=== PATIENT | male | born 1975 | race Caucasian/White ===

== ENCOUNTER 2020-04-14 16:41 | Emergency (ER) | payer OTHER ==
[~2020-04-14] VITALS: Ht 177.8 cm; Wt 88.6 kg
[2020-04-14] MEDS ORDERED: IV NORMAL SALINE 1,000ML 1,000 ML IV SCH (16:44)
--- NOTE | 2020-04-14 16:48 | PHYS DOC ---
Past History Past Medical History: No Pertinent History (ADRIEN GOMES MD) General Adult EDM: Chief Complaint: OVERDOSE HPI: HPI: Patient is a 44-year-old male who presents to the emergency department for evaluation. He was found unresponsive on the floor in the bathroom in the [facility], suspected of abusing drugs possibly K2 per guard reports to EMS. There is another resident of the same facility who was just seen in the emergency department for similar symptoms under similar circumstance. The p karthikeyan presents to the emergency department, he is able to answer some basic questions but is unable to provide any meaningful history, secondary to to altered mental status. He appears intoxicated, possibly consistent with a sympathomimetic toxidrome. He denies any pain. (ADRIEN GOMES MD) Review of Systems: Review of Systems: Unable to obtain review of systems secondary to altered mental status. (ADRIEN GOMES MD) Heart Score: Risk Factors: Risk Factors: DM, Current or recent (<one month) smoker, HTN, HLP, family history of CAD, obesity. Risk Scores: Score 0 - 3: 2.5% MACE over next 6 weeks - Discharge Home Score 4 - 6: 20.3% MACE over next 6 weeks - Admit for Clinical Observation Score 7 - 10: 72.7% MACE over next 6 weeks - Early Invasive Strategies (ADRIEN GOMES MD) Physical Exam: PE: PHYSICAL EXAM: CONSTITUTIONAL: Well developed, well nourished HEAD: normocephalic, atraumatic EENT: PERRL, EOMI. pupils are 7 mm bilaterally. Conjunctivae normal color, sc lerae non-icteric; moist mucous membranes. NECK: Supple, non-tender; no meningismus. LUNGS: Lungs CTA, breathing even and unlabored. Normal air movement. HEART: Regular tachycardia, no murmur CHEST: No deformity; non-tender ABDOMEN: The abdomen is soft, and non-tender, no masses or bruits. EXTREM: Normal ROM; no deformity, no calf tenderness. Normal pulses palpable in all extremities. There is no pedal edema. SKIN: No rash; patient is diaphoretic, mildly. NEURO: Alert; speech articulation is normal, patient is somewhat disoriented,; CN's grossly intact; strength grossly intact without focal deficit. BACK: No CVA TTP. (ADRIEN GOMES MD) EKG: EKG: [] Sinus tachycardia at a rate of 131 bpm, normal axis, normal intervals, there are no acute ischemic ST/T changes. (ADRIEN GOMES MD) Radiology/Procedures: Radiology/Procedures: [] (ADRIEN GOMES MD) Course & Med Decision Making: Course & Med Decision Making 6:00 PM: Pt condition remains stable. Care turned over to Dr Hunt at shift change, pending labs and final dispo. Report given. Pertinent Labs and Imaging studies reviewed. (See chart for details) [] (ADRIEN GOMES MD) Course & Med Decision Making 1800 Care of pt assumed at shift change 1840; patient refused CT of head. Patient states "I am all right". Patient is lucid awake and appropriate with no focal deficits or lateralizing signs. Patient states that he drank a couple shots of alcohol earlier tonight but his alcohol level was 0. Patient was advised that refusing the CAT scan could result in the failure to diagnose a stroke, brain bleed or other serious findings. This could result in or disability. Patient still insisted upon refusing this test (ARCADIO HUNT DO) Dragon Disclaimer: Dragon Disclaimer: This electronic medical record was generated, in whole or in part, using a voice recognition dictation system. (ADRIEN GOMES MD) Departure Departure: Impression: Primary Impression: Altered mental status Qualified Codes: R41.0 - Disorientation, unspecified Additional Impression: Amphetamine abuse Disposition: HOME/RESIDENCE PRIOR TO ADM Condition: STABLE Referrals: AYSE HOLLAND MD Patient Instructions: Altered Mental Status, Methamphetamine Abuse, Complications Additional Instructions: Drink plenty fluids, rest, return if symptoms persist or worsen. You are medically cleared at this time Positive finding was methamphetamine in your urine Justification of Admission: Justification of Admission: Justification of Admission Dx: N/A (ARCADIO HUNT DO) ADRIEN GOMES MD Apr 14, 2020 16:48 ARCADIO HUNT DO Apr 14, 2020 18:03
--- NOTE | 2020-04-14 16:56 | EKG ---
[address] [address] Test Date: 2020-04-14 Test Time: 16:48:23 Pat Name: MARIANA ALMAGUER Department: Room: Gender: M Spacer Type Bar And Segment: : 1975 Requested By: ADRIEN GOMES Order Number: [id number] Reading MD: Measurements Intervals Hector Rate: 131 P: 48 IL: 124 QRS: 52 QRSD: 82 T: 48 QT: 306 QTc: 457 Interpretive Statements SINUS TACHYCARDIA NO SPECIFIC ECG ABNORMALITIES RI6.02 No previous ECG available for comparison
[2020-04-14 17:09] VITALS: BP 130/81
[2020-04-14 17:11] LABS: BASO % 1 % (0-3); EOS # 0.1 x10^3/uL (0.0-0.7); EOS % 2 % (0-3); HEMATOCRIT 48.5 % (39.0-53.0); HEMOGLOBIN 16.4 g/dL (13.0-17.5); LYMPH # 1.3 x10^3/uL (1.0-4.8); LYMPH % 24 % (24-48); MEAN CORPUSCULAR HEMOGLOBIN 31 pg (25-35); MEAN CORPUSCULAR HGB CONC 34 g/dL (31-37); MEAN CORPUSCULAR VOLUME 92 fL (79-100); MONO # 0.5 x10^3/uL (0.0-1.1); MONO % 9 % (0-9); NEUT # 3.6 x10^3uL (1.8-7.7); NEUT % 65 % (31-73); PLATELET COUNT 320 x10^3/uL (140-400); RED BLOOD COUNT 5.25 x10^6/uL (4.30-5.70); RED CELL DISTRIBUTION WIDTH 12.7 % (11.5-14.5); WHITE BLOOD COUNT 5.5 x10^3/uL (4.0-11.0)
[2020-04-14 17:24] LABS: CALCIUM 9.5 mg/dL (8.5-10.1); CREATININE 1.2 mg/dL (0.7-1.3); GFR 66.4; POTASSIUM 3.8 mmol/L (3.5-5.1)
[2020-04-14 17:30] LABS: ALBUMIN 4.3 g/dL (3.4-5.0); ALBUMIN/GLOBULIN RATIO 1.2 (1.0-1.7); TOTAL BILIRUBIN 0.7 mg/dL (0.2-1.0); TOTAL PROTEIN 7.9 g/dL (6.4-8.2)
--- NOTE | 2020-04-14 18:57 | NUR ---
ER Doctor, Dr. Jones ordered a Co-Ox on patient. Venous sample was obtained and sent to [facility] for analysis. RT Henry called me with results at 1855. Co-Ox is 1.4.
[2020-04-14 19:23] LABS: AMPHETAMINE/METHAMPHETAMINE POS (NEG); BARBITURATES NEG (NEG); BENZODIAZEPINES NEG (NEG); CANNABINOIDS NEG (NEG); COCAINE NEG (NEG); METHADONE NEG (NEG); OPIATES NEG (NEG); PHENCYCLIDINE NEG (NEG)
[2020-04-14 19:31] LABS: BACTERIA,URINE 0 /HPF (0-FEW); BILIRUBIN,URINE NEG (NEG); CLARITY,URINE HAZY; COLOR,URINE YELLOW; GLUCOSE,URINE NEG (NEG); NITRITE,URINE NEG (NEG); RBC,URINE 0 /HPF (0-2); SQUAMOUS EPITHELIAL CELL,UR FEW /LPF; UROBILINOGEN,URINE 0.2 mg/dL (0.2 mg/dL)
== END 2020-04-14 19:54 | disposition home or self-care (01) ==
LOC: ER 16:41
DX: R41.82 Altered mental status, unspecified (principal); F15.10 Other stimulant abuse, uncomplicated
CPT/HCPCS: 36415; 80053; 80307; 81001; 82375; 83735; 85025; 93005; 96360; 99284; G0480; J7030